=== PATIENT | female | born 1990 | race Caucasian/White ===

== ENCOUNTER 2021-01-04 17:11 | Emergency (ER) | payer MEDICAID, SELFPAY ==
[2021-01-04 17:59] VITALS: BP 138/82; PULSE 96; RESP 15; TEMP 36.3; O2SAT 98; BMI 67.6
--- NOTE | 2021-01-04 18:20 | XR_ITS ---
WS: [id number] XR chest 1V portable [id number] REASON FOR EXAM: sob FINDINGS: The chest is unchanged compared to 10/08/2013. The heart and mediastinum are within normal limits. No active pulmonary parenchymal or pleural disease is noted. No significant abnormality of the bony thorax. XR/XR chest 1V portable [id number] IMPRESSION: No significant chest abnormality.
[2021-01-04 18:36] LABS: Basophils % 0.2 %; Eosinophils # 0.1 10^3/uL (0.0-0.8); Eosinophils % 0.5 %; Hematocrit 46.6 % (37.0-47.0); Hemoglobin 14.9 g/dL (11.5-15.3); Lymphocytes % 9.5 %; Mean Corpuscular Volume 84.6 fL (81-99); Mean Platelet Volume 10.4 fL (7.4-10.4); Monocytes # 0.5 10^3/uL (0.2-0.9); Monocytes % 5.3 %; Neutrophils # 8.42 10^3/uL (1.8-7.7); Neutrophils % 84.2 %; Nucleated Red Blood Cells % 0 %; Platelet Count 277 10^3/cmm (130-400); Red Blood Count 5.51 10^6/uL (4.1-5.3); Red Cell Distribution Width 13.8 % (12.1-15.1)
--- NOTE | 2021-01-04 19:03 | PC.NURSE ---
REPORT RECEIVED FROM MATHEUS CHURCH AND CARE TRANSFERRED TO MATHEUS HURLEY
[2021-01-04 19:13] LABS: Procalcitonin 0.05 ng/mL (0-0.5)
[2021-01-04 19:24] LABS: Blood Urea Nitrogen 12 mg/dL (6-20); Calcium 9.4 mg/dL (8.5-10.5); Carbon Dioxide 24 mmol/L (22-29); Chloride 102 mmol/L (98-107); Glomerular Filtration Rate 115.9 mL/min (90-130); Glucose 92 mg/dL (65-115); Osmolality Calculated 283 mOsm/kg (285-295); Sodium 137 mmol/L (136-145)
[2021-01-04 19:25] LABS: Alanine Aminotransferase 22 U/L (0-33); Albumin Level 4.2 g/dL (3.5-5.2); Alkaline Phosphatase 108 IU/L (35-105); Aspartate Amino Transferase 13 U/L (0-32); C Reactive Protein 14.5 mg/L (0.0-4.9); Globulin 3.7 g/dL (1.3-4.6); Lipase 20 U/L (13-60); Total Bilirubin 0.5 mg/dL (0.15-1.2); Total Protein 7.9 g/dL (6.6-8.7)
[2021-01-04 19:38] VITALS: RESP 16; O2SAT 92
[2021-01-04] MEDS: morphine 4 mg/mL SDV 1 mL IVP (19:38)
[2021-01-04] MEDS: ondansetron 2 mg/ML SDV 2 mL 4 MG IVP (19:38)
[2021-01-04 19:41] VITALS: PULSE 101; RESP 17; O2SAT 92
[2021-01-04 20:17] LABS: Add Urine Microscopic? YES; Bilirubin Urine Neg (Negative); Blood Urine 2+ (Negative); Glucose Urine UA Norm (Normal); Ketones Urine Negative (Negative); Leukocyte Esterase Urine Negative (Negative); Nitrate Urine Negative (Negative); Protein Urine Neg (Negative); Urine Appearance Cloudy (CLEAR); Urine Color Yellow (Yellow); Urobilinogen Urine Norm (Negative); pH Urine 5 (5-7)
[2021-01-04 20:18] LABS: Add Urine Culture? No; Bacteria Urine 1+ /hpf; Squamous Epithelial Cell Urine 0-4 /hpf (0-5); WBC Urine 0-4 /hpf (0-5)
--- NOTE | 2021-01-04 20:22 | CTR_ITS ---
PROCEDURE INFORMATION: Exam: CT Abdomen And Pelvis Without Contrast Exam date and time: 01/04/2021 8:30 PM Age: 30 years old Clinical indication: Abdominal pain; Prior surgery; Surgery type: Gb; Additional info: Right flank pain TECHNIQUE: Imaging protocol: Computed tomography of the abdomen and pelvis without contrast. Total images: 373 Radiation optimization: All CT scans at this facility use at least one of these dose optimization techniques: automated exposure control; mA and/or kV adjustment per patient size (includes targeted exams where dose is matched to clinical indication); or iterative reconstruction. COMPARISON: US gall bladder [id number] 01/03/2017 7:47 AM RADIATION DOSE METRICS: Total DLP (mGy-cm): 1935.48 FINDINGS: Lungs: Limited assessment of the lung bases fails to reveal evidence for active cardiopulmonary process. Liver: Hepatomegaly. No visible hepatic mass or cystic structure. Gallbladder and bile ducts: Status post cholecystectomy. Pancreas: Pancreas unremarkable. No visible pancreatic ductal ectasia. Spleen: Splenomegaly. Adrenal glands: Adrenal glands unremarkable. Kidneys and ureters: No visible hydronephrosis or hydroureter. No visible nephrolithiasis or visible ureterolithiasis. Stomach and bowel: Assessment of the hollow viscus fails to reveal evidence of active or acute pathology. Nonobstructed bowel pattern. No visible acute diverticulitis. No visible adynamic or reactive ileus. Appendix: The appendix is visualized and appears noninflamed. Intraperitoneal space: No visible evidence of mesenteric lymphadenitis or active mesenteritis/panniculitis. No visible pneumoperitoneum or intraperitoneal ascites. Vasculature: The abdominal aorta is nonaneurysmal. Lymph nodes: No current visible evidence of active mesenteric or retroperitoneal lymphadenopathy. Urinary bladder: Urinary bladder unremarkable. Reproductive: Unremarkable as visualized. Bones/joints: No visible active or acute osseous pathology. Degenerative disc disease L5/S1. Soft tissues: Marked morbid obesity. Other findings: Increased quantum mottle artifact which degrades image quality in detail assessment. CT/CT kidney stone [id number] IMPRESSION: 1. No visible hydronephrosis, hydroureter, ureterolithiasis, nephrolithiasis, or nephrocalcinosis. 2. Currently no visible evidence of acute abdominal or pelvic pathologic process. Radiation Dose CTDIVOL = (mGy): DLP = 1935.48 (mGy-cm)
[2021-01-04] MEDS: metoclopramide 5 mg/mL SDV 2 mL 10 MG IVP (20:27)
--- NOTE | 2021-01-04 20:27 | W.ED.GENADLT ---
HPI - General Adult General: Chief complaint: General Medical Stated complaint: multiple chronic complaints Time Seen by Provider: 01/04/21 18:06 Source: patient Mode of arrival: ambulatory Limitations: no limitations History of Present Illness: HPI narrative: Patient is a 30-year-old female who presents to the emergency department with abdominal pain that has been on and off for several years. She states this current episode has been lasting for about 3 months. She also has some shortness of breath which she attributes to being obese, some chest tightness. She has had her gallbladder removed, symptoms were worse when she ate and she vomited after eating chicken strips. She denies any fever or diarrhea. She denies constipation. She feels her abdomen is bloated. She is here to be evaluated. Onset (ago): month(s) (3) Location: abdomen Radiation: non-radiation Severity: moderate Quality: aching Pain Consistency: constant Relieving factors: none Exacerbating factors: none Associated symptoms: Reports nausea and short of breath; Deny chest pain, confusion, cough, diaphoresis, decreased appetite, dyspnea, fevers/chills, headache(s), malaise, rash, palpitations, seizures, syncope, vomiting or weakness Treatments prior to arrival: none Review of Systems General: Reports: 10 or more systems reviewed and unremarkable except in HPI and below Const: Denies: malaise or diaphoresis Eyes: Denies: change in vision or blurry vision ENMT: Denies: throat pain, enlarged tonsils, odynophagia, hoarseness, mouth pain or swelling of lips/tongue Card: Denies: chest pain, palpitations or syncope Resp: Denies: dyspnea GI: Reports: nausea; Denies: vomiting : Denies: flank pain, difficulty voiding, dysuria, urinary frequency, urinary urgency or urinary hesitancy Musc: Denies: neck pain, back pain or extremity swelling Skin/Breast: Denies: rash Neuro: Denies: headache(s) or confusion Endo: Denies: polyuria, polydipsia or tired all the time [facility] Female Reproductive History: Date of last menstrual period: 12/14/20 Physical Exam Const: COMMON NORMALS: no acute distress, patient oriented x3, no limitations, alert and well nourished NUTRITIONAL APPEARANCE: obese morbidly obese HENMT: COMMON NORMALS: normocephalic, atraumatic and moist oral mucous membranes HEAD & SCALP: normocephalic and atraumatic Neck/C-Spine: COMMON NORMALS: no meningeal signs and no JVD Resp: COMMON NORMALS: normal respiratory effort, No retractions, No use of accessory muscles, clear to auscultation bilaterally and percussion normal AUSCULTATION: clear to auscultation bilaterally PERCUSSION: percussion normal Cardio: COMMON NORMALS: no JVD, regular rate, regular rhythm, S1 normal heart sound present, S2 normal heart sound present, No gallops present (Cardio), No clicks present (Cardio), No murmurs present (Cardio), No rub (Cardio) and Peripheral pulses 2+ throughout RATE: regular rate RHYTHM: regular rhythm HEART SOUNDS: S1 normal heart sound present and S2 normal heart sound present PERIPHERAL PULSES: Peripheral pulses 2+ throughout GI: COMMON NORMALS: Normal to inspection, nondistended, normoactive bowel sounds present, Soft to palpation, No hepatosplenomegaly present, no masses and no bruits PALPATION: Yes Soft to palpation, Yes Tenderness to palpation present (GI) (epigastric) and Yes No hepatosplenomegaly present : COMMON NORMALS: Yes no CVA tenderness BLADDER/KIDNEY EXAM: Yes no CVA tenderness Back/Pelvis: COMMON NORMALS: no CVA tenderness Extremity: COMMON NORMALS: normal to inspection, full ROM, capillary refill normal, no calf tenderness and no pedal edema Neuro: COMMON NORMALS: patient oriented x3 SENSORIUM/ORIENTATION: Yes alert MENINGEAL SIGNS: Yes no meningeal signs Course Reevaluation(s): Reevaluation #1: Discussed her lab and imaging findings with her. She has hematuria, however the abdominal CT scan did not show any urolithiasis. She obtained significant improvement following the metoclopramide injection. I will therefore discharge her home with a prescription for metoclopramide and she is advised to follow-up with her primary care provider. She voiced understanding and is in agreement with the plan Time: 21:47 Vital Signs: Vital signs: Vital Signs Temperature 97.3 F L 01/04/21 17:59 Pulse Rate 116 H 01/04/21 21:52 Respiratory Rate 16 01/04/21 21:52 Blood Pressure 123/92 01/04/21 21:52 Pulse Oximetry 97 01/04/21 21:52 MDM - General Adult MDM Narrative: Medical decision making narrative: 30-year-old female who presents to the emergency department with abdominal pain that has been ongoing for about 3 months. Evaluation in the emergency department was unremarkable. Pain was resolved following metoclopramide as she is discharged home on the same to use as needed. She is also to follow-up with her primary care provider. Medical Records: Attestation: I reviewed the patient's medical records. Lab Data: Attestation: I reviewed the patient's lab results. Labs: Lab Results 01/04/21 01/04/21 01/04/21 Range/Units 18:24 18:24 19:28 WBC 10.0 (4.0-10.0) 10^3/ uL RBC 5.51 H (4.1-5.3) 10^6/u L Hgb 14.9 (11.5-15.3) g/dL Hct 46.6 (37.0-47.0) % MCV 84.6 (81-99) fL MCH 27.0 L (28.0-34.0) pg MCHC 32.0 (30.0-36.0) g/dL RDW 13.8 (12.1-15.1) % Plt Count 277 (130-400) 10^3/c mm MPV 10.4 (7.4-10.4) fL Neut % (Auto) 84.2 % Lymph % (Auto) 9.5 % [place] % (Auto) 5.3 % Eos % (Auto) 0.5 % Baso % (Auto) 0.2 % Neut # (Auto) 8.42 H (1.8-7.7) 10^3/u L Lymph # (Auto) 1.0 (0.8-4.8) 10^3/u L [place] # (Auto) 0.5 (0.2-0.9) 10^3/u L Eos # (Auto) 0.1 (0.0-0.8) 10^3/u L Baso # (Auto) 0.0 (0.0-0.1) 10^3/u L Nucleated RBC % (a uto) 0 % Nucleated RBCs # 0.0 /100WBC Sodium 137 (136-145) mmol/L Potassium 4.0 (3.5-5.1) mmol/L Chloride 102 (98-107) mmol/L Carbon Dioxide 24 (22-29) mmol/L Anion Gap 15.0 (5-19) BUN 12 (6-20) mg/dL Creatinine 0.6 (0.5-0.9) mg/dL GFR Calculation 115.9 (90-130) mL/min Glucose 92 (65-115) mg/dL Calculated Osmolal ity 283 L (285-295) mOsm/k g Calcium 9.4 (8.5-10.5) mg/dL Total Bilirubin 0.5 (0.15-1.2) mg/dL AST 13 (0-32) U/L ALT 22 (0-33) U/L Alkaline Phosphata se 108 H (35-105) IU/L C-Reactive Protein 14.5 H (0.0-4.9) mg/L Total Protein 7.9 (6.6-8.7) g/dL Albumin 4.2 (3.5-5.2) g/dL Globulin 3.7 (1.3-4.6) g/dL Lipase 20 (13-60) U/L Procalcitonin 0.05 (0-0.5) ng/mL Urine Color Yellow (Yellow) Urine Appearance Cloudy (CLEAR) Urine pH 5 (5-7) Ur Specific Gravit y 1.020 (1.005-1.030) Urine Protein Neg (Negative) Urine Glucose (UA) Norm (Normal) Urine Ketones Negative (Negative) Urine Blood 2+ H (Negative) Urine Nitrate Negative (Negative) Urine Bilirubin Neg (Negative) Urine Urobilinogen Norm (Negative) mg/dL Ur Leukocyte Julia ase Negative (Negative) Urine RBC 10-15 H (0-2) /hpf Urine WBC 0-4 H (0-5) /hpf Ur Squamous Epith Cells 0-4 H (0-5) /hpf Amorphous Sediment Not Reportable Urine Bacteria 1+ H (NONE) /hpf Imaging Data^: CT Abd/Pel: Attestation: I personally reviewed and interpreted this imaging study as follows: Radiologist's impression: [address] [place] [address] CT Scan Report Signed Patient: Jhony Quiroga Ginger #: [id number] : 1990Acct#:[id number] Age/Sex: 30 / FADM Date: 01/04/21 Loc: ERRoom/Bed: Attending Dr: Ordering Provider/Ordering MD: Candy Crandall MD, BILLIE Date of Service: 01/04/21 Procedure(s): CT kidney stone 26113 Accession Number(s): [id number] Report Number: [id number] PROCEDURE INFORMATION: Exam: CT Abdomen And Pelvis Without Contrast Exam date and time: 01/04/2021 8:30 PM Age: 30 years old Clinical indication: Abdominal pain; Prior surgery; Surgery type: Gb; Additional info: Right flank pain TECHNIQUE: Imaging protocol: Computed tomography of the abdomen and pelvis without contrast. Total images: 373 Radiation optimization: All CT scans at this facility use at least one of these dose optimization techniques: automated exposure control; mA and/or kV adjustment per patient size (includes targeted exams where dose is matched to clinical indication); or iterative reconstruction. COMPARISON: gall bladder [id number] 01/03/2017 7:47 AM RADIATION DOSE METRICS: Total DLP (mGy-cm): 1935.48 FINDINGS: Lungs: Limited assessment of the lung bases fails to reveal evidence for active cardiopulmonary process. Liver: Hepatomegaly. No visible hepatic mass or cystic structure. Gallbladder and bile ducts: Status post cholecystectomy. Pancreas: Pancreas unremarkable. No visible pancreatic ductal ectasia. Spleen: Splenomegaly. Adrenal glands: Adrenal glands unremarkable. Kidneys and ureters: No visible hydronephrosis or hydroureter. No visible nephrolithiasis or visible ureterolithiasis. Stomach and bowel: Assessment of the hollow viscus fails to reveal evidence of active or acute pathology. Nonobstructed bowel pattern. No visible acute diverticulitis. No visible adynamic or reactive ileus. Appendix: The appendix is visualized and appears noninflamed. Intraperitoneal space: No visible evidence of mesenteric lymphadenitis or active mesenteritis/panniculitis. No visible pneumoperitoneum or intraperitoneal ascites. Vasculature: The abdominal aorta is nonaneurysmal. Lymph nodes: No current visible evidence of active mesenteric or retroperitoneal lymphadenopathy. Urinary bladder: Urinary bladder unremarkable. Reproductive: Unremarkable as visualized. Bones/joints: No visible active or acute osseous pathology. Degenerative disc disease L5/S1. Soft tissues: Marked morbid obesity. Other findings: Increased quantum mottle artifact which degrades image quality in detail assessment. CT/CT kidney stone [id number] IMPRESSION: 1. No visible hydronephrosis, hydroureter, ureterolithiasis, nephrolithiasis, or nephrocalcinosis. 2. Currently no visible evidence of acute abdominal or pelvic pathologic process. Radiation Dose CTDIVOL = (mGy): DLP = 1935.48 (mGy-cm) Dictated By:Nikolay Krishnan Signed By:Nikolay KrishnanSiallyson Date/Time:01/04/212151 DD/ 09 Discharge Plan Discharge Patient Disposition: Home Clinical Impression: Abdominal pain Qualifiers: Abdominal location: epigastric Qualified Code(s): R10.13 - Epigastric pain Condition: Stable Prescriptions: New Reglan 10 mg tablet 10 mg PO Q6H PRN (Reason: nausea and vomiting) Qty: 21 RF: 0 Continued diphenhydramine-acetaminophen 38-500 mg Tablet 1 - 2 tab PO BEDTIME PRN (Reason: Sleep) RF: 0 Discharge Orders: Discharge ED (Routine); Ordered 01/04/21 Ordered By: Candy Crandall Referrals: Fabian Coyne MD [Primary Care Provider] - 1-3 days Discharge Diet: Usual diet Discharge Activity: Increase activity as tolerated Patient Instructions: Abdominal Pain (ED) Activity Restrictions/Additional Instructions: Return for any new or worsening symptoms. Follow-up with your primary care provider within 3 days. Take the medication as needed. Coding Level of Care Code ED Floral Department Specialist for Aamir Hudsno
--- NOTE | 2021-01-04 20:39 | PC.NURSE ---
patient ambulated to CT with process maintenance technician
[2021-01-04 21:52] VITALS: BP 123/92; PULSE 116; RESP 16; O2SAT 97
== END 2021-01-04 21:55 | disposition home or self-care (01) ==
PROVIDERS: Emergency Provider Family Medicine; PCP Family Medicine
DX: R10.13 Epigastric pain (principal)
CPT/HCPCS: 71045; 74176; 80053; 81001; 83690; 84145; 85025; 86140; 96374; 96375; 99283; J2270; J2405; J2765

== ENCOUNTER 2021-06-03 15:10 | Emergency (ER) | payer MEDICAID, SELFPAY ==
[2021-06-03 15:29] VITALS: BP 142/104; PULSE 95; RESP 18; TEMP 36.6; O2SAT 97
--- NOTE | 2021-06-03 15:41 | XRR_ITS ---
PROCEDURE INFORMATION: Exam: XR Right Knee Exam date and time: 06/03/2021 3:41 PM Age: 30 years old Clinical indication: Pain; Knee; Right; Additional info: Pain, injury TECHNIQUE: Imaging protocol: XR Right knee. Views: 3 views. COMPARISON: No relevant prior studies available. FINDINGS: Bones/joints: Normal. Soft tissues: Normal. XR/XR knee RT 3V* [id number] IMPRESSION: No acute findings.
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
== END 2021-06-03 16:41 | disposition home or self-care (01) ==
PROVIDERS: Emergency Provider Nurse Practitioner Family; PCP Family Medicine
DX: M25.561 Pain in right knee (principal)
CPT/HCPCS: 73562; 99282

== ENCOUNTER → 2021-08-31 14:59 | Outpatient (BNVA) | payer MEDICAID, SELFPAY | PROVIDERS: PCP Family Medicine; Visit Provider Nurse Practitioner Family | DX: Z20.822 Contact with and (suspected) exposure to COVID-19 (principal) | CPT/HCPCS: 87635 ==

== ENCOUNTER 2021-09-17 15:30 | Emergency (ER) | payer MEDICAID, SELFPAY ==
[2021-09-17 16:10] VITALS: BP 138/98; PULSE 76; RESP 24; TEMP 36.4; O2SAT 98; BMI 73.1
--- NOTE | 2021-09-17 17:06 | XRR_ITS ---
PROCEDURE INFORMATION: Exam: XR Chest Exam date and time: 09/17/2021 5:06 PM Age: 31 years old Clinical indication: Cough; Additional info: Cough, history of pneumonia TECHNIQUE: Imaging protocol: XR of the chest. Views: 1 view. COMPARISON: CR XR chest 1V portable [id number] 01/04/2021 6:28 PM FINDINGS: Lungs: Unremarkable. No consolidation. Pleural spaces: Unremarkable. No pleural effusion. No pneumothorax. Heart/Mediastinum: Unremarkable. No cardiomegaly. Bones/joints: Unremarkable. XR/XR chest 1V portable [id number] IMPRESSION: No acute findings. Radiation Dose CTDIVOL = (mGy): DLP = (mGy-cm)
--- NOTE | 2021-09-17 17:06 | W.ED.URI ---
HPI - URI/Sore Throat General: Chief Complaint: Upper Respiratory Infection Stated Complaint: TROUBLE BREATHING Time Seen by Provider: 09/17/21 16:58 History of Present Illness: HPI Narrative: 31-year-old female comes in today for complaints of cough and congestion for the last 3 weeks. Patient was treated 1 week ago with steroids and antibiotic. Patient is a smoker but has not smoked for the last 3 weeks. Patient appears mildly unwell but not toxic. Patient appears no acute distress. MD elicited complaint: cough Review of Systems General: Reports: 10 or more systems reviewed and unremarkable except in HPI and below Resp: Reports: dyspnea and non-productive cough PFS ED PFSH: Social History Smoking and tobacco status: current every day smoker Female Reproductive History: Date of last menstrual period: 08/17/21 Physical Exam Const: COMMON NORMALS: no acute distress and patient oriented x3 GENERAL APPEARANCE: cooperative HENMT: COMMON NORMALS: normocephalic and TM's normal bilaterally HEAD & SCALP: normal to inspection and normocephalic NOSE: Nasal discharge present TYMPANIC MEMBRANE: TM's normal bilaterally MOUTH: Normal oral and palatal mucosa present THROAT: posterior oropharynx normal Eye: GENERAL EYE: appearance normal, both eyes and all related structures Neck/C-Spine: COMMON NORMALS: full ROM Lymph: LYMPHATIC: no lymphadenopathy noted Chest: COMMONS NORMALS: normal inspection of the chest Resp: COMMON NORMALS: normal respiratory effort EFFORT & INSPECTION: Yes able to speak in complete sentences AUSCULTATION: wheezes and diminished lung sounds Cardio: COMMON NORMALS: regular rate and regular rhythm RATE: regular rate RHYTHM: regular rhythm GI: COMMON NORMALS: non-tender : COMMON NORMALS: Yes no CVA tenderness BLADDER/KIDNEY EXAM: Yes no CVA tenderness Back/Pelvis: COMMON NORMALS: no CVA tenderness and thoracic and lumbar spine normal to inspection Extremity: COMMON NORMALS: normal to inspection Neuro: COMMON NORMALS: patient oriented x3 and moves all extremities Psych: COMMON NORMALS: mental status grossly normal and cooperative Skin: COMMON NORMALS: no rashes or lesions noted GENERAL SKIN EXAM: no rashes or lesions noted Course Vital Signs: Vital signs: Vital Signs Temperature 97.6 F 09/17/21 16:10 Pulse Rate 76 09/17/21 16:10 Respiratory Rate 24 H 09/17/21 16:10 Blood Pressure 138/98 09/17/21 16:10 Pulse Oximetry 98 09/17/21 16:10 MDM - URI/Sore Throat MDM Narrative: Medical decision making narrative: Patient comes in today with continued complaints of difficulty breathing at times with cough and congestion. On exam lungs were decreased throughout with occasional wheeze. Skin was warm and dry. Vital signs were unremarkable. Differential diagnosis includes but not limited to pneumonia, acute bronchitis, asthma, COPD. Chest x-ray had no obvious signs of infiltrate or consolidations. Suspect patient probably has a COPD. We will start patient on a course of doxycycline with prednisone and also add to patient's regimen Symbicort inhaler. Encourage patient to drink plenty of fluids and follow-up with primary care in 3 to 5 days for recheck. Patient reported understanding and agreed to plan. Discharge Plan Discharge Patient Disposition: Home Clinical Impression: Bronchitis Condition: Stable Prescriptions: New doxycycline monohydrate 100 mg capsule 100 mg PO BID 10 Days Qty: 20 RF: 0 prednisone 20 mg tablet 20 mg PO BID 7 Days Qty: 14 RF: 0 Symbicort 80-4.5 mcg/actuation HFA aerosol inhaler 2 inh inhalation BID Qty: 10.2 RF: 0 Continued Ventolin HFA 90 mcg/actuation HFA aerosol inhaler 2 puff inhalation Q6H PRN (Reason: shortness of breath or wheezing) Qty: 8.5 RF: 0 No Action azithromycin 250 mg tablet See Rx Instructions PO .COMPLEX Qty: 6 RF: 0 methylprednisolone [Medrol (Roderick)] 4 mg tablets,dose pack See Rx Instructions PO PER PKG DIR Qty: 21 RF: 0 diphenhydramine-acetaminophen 38-500 mg Tablet 1 - 2 tab PO BEDTIME PRN (Reason: Sleep) RF: 0 Reglan 10 mg tablet 10 mg PO Q6H PRN (Reason: nausea and vomiting) Qty: 21 RF: 0 Discharge Orders: Discharge ED (Routine); Ordered 09/17/21 Ordered By: Rick Darnell Referrals: Fabian Coyne MD [Primary Care Provider] - Patient Instructions: Chronic Bronchitis (ED), Opioid Safety Activity Restrictions/Additional Instructions: Continue cessation of smoking. Use albuterol as needed for shortness of breath. Use doxycycline 100 mg twice a day for the next 10 days for antibiotic. Take prednisone 20 mg twice a day for the next 7 days. Drink plenty of water with medication. Follow-up with primary care in 3 to 5 days for recheck. You may need to have further evaluation and possibly further treatment with a steroid inhaler or other medication to assist with your cough and congestion. Coding Level of Care Code ED Fleet Coordinator for Aamir Hudson Exam Comprehensive
[2021-09-17] MEDS: dexamethasone 10 mg/mL INJ IM (18:58)
[2021-09-17 19:00] VITALS: PULSE 83; RESP 20; O2SAT 94
[2021-09-17] MEDS: doxycycline 100 mg Tablet PO (19:03)
== END 2021-09-17 19:05 | disposition home or self-care (01) ==
PROVIDERS: Emergency Provider Nurse Practitioner Family; PCP Family Medicine
DX: J40 Bronchitis, not specified as acute or chronic (principal); F17.210 Nicotine dependence, cigarettes, uncomplicated
CPT/HCPCS: 71045; 96372; 99283; J1100

== ENCOUNTER 2021-12-18 08:48 | Outpatient (CLI) | payer MEDICAID, SELFPAY ==
--- NOTE | 2021-12-18 08:59 | CT_ITS ---
WS: [id number] CT ABDOMEN AND PELVIS WITH CONTRAST HISTORY: ELEVATED C REACTIVE PROTEIN/ABD PAIN/EASY BRUISING TECHNIQUE: Imaging performed of the abdomen and pelvis with IV contrast. Single phase imaging of the abdomen. Coronal and sagittal reformats are submitted. All CT scans at [facility] use at [address] one of these dose optimization techniques: automated exposure control; mA and/or kV adjustment per patient size (includes targeted exams where dose is matched to clinical indication); or iterative re construction. IV CONTRAST: Omnipaque 350; 95 mL IV. Oral contrast: Yes. DLP: 1246.01 mGy.cm COMPARISON: 01/04/2021 Lower thorax: Lung bases are clear. Heart is normal size. Small hiatal hernia. Liver/biliary system: Fatty sparing along the falciform ligament. No mass or bile duct dilatation. Gallbladder: Status post cholecystectomy. Pancreas: Normal size pancreas and pancreatic duct. No adjacent inflammation. Spleen: Normal size spleen. No mass or infarct. Adrenal glands: Normal. Right kidney: Variable density throughout the kidney. Favor this is probably due to body habitus and beam hardening artifact. Left kidney: Variable density throughout the kidney is probably due to patient's body habitus and nicolasa m hardening artifact. Aorta: Normal. Lymphadenopathy: None. Free fluid: None. GI tract: Nondistended stomach. No small bowel obstruction. The appendix is poorly visualized due to body habitus. No inflammatory changes are identified in the abdomen or pelvis. No obstruction. Abdominal wall: Small area of increased density in the subcutaneous soft tissues of the RIGHT abdomin al wall measures 14 x 18 mm. This corresponds to the area of pain. Pelvis: No free fluid or adenopathy within the pelvis. Significant artifact through the pelvis. Uteru s and adnexa are poorly visualized. Bones: Suboptimal evaluation of the osseous structures of the pelvis. CT/CT abdomen pelvis w con* [id number] IMPRESSION: 1. No acute intra-abdominal or pelvic abnormalities are identified. 2. Quality of this examination is suboptimal secondary to body habitus resulti ng in beam hardening artifact. 3. Prior cholecystectomy. 4. Focal area of fat necrosis in the subcutaneous soft tissues of the RIGHT ab dominal wall.
[2021-12-18] MEDS: iohexol 350 mg/mL 100 mL Btl IV (11:19)
[2021-12-18] MEDS: iohexol 300 mg/mL 50 mL Btl PO (11:20)
== END 2021-12-18 08:49 | disposition home or self-care (01) ==
PROVIDERS: PCP Family Medicine; Visit Provider Family Medicine
DX: R79.82 Elevated C-reactive protein (CRP) (principal); R10.84 Generalized abdominal pain; R23.8 Other skin changes; R63.4 Abnormal weight loss; Z90.49 Acquired absence of other specified parts of digestive tract; K65.4 Sclerosing mesenteritis
CPT/HCPCS: 74177

== ENCOUNTER → 2021-12-27 13:47 | Outpatient (BNVA) | payer MEDICAID, SELFPAY | PROVIDERS: PCP Family Medicine; Visit Provider Nurse Practitioner Psychiatric/Mental Health | DX: F33.1 Major depressive disorder, recurrent, moderate (principal); F43.12 Post-traumatic stress disorder, chronic; F17.210 Nicotine dependence, cigarettes, uncomplicated | CPT/HCPCS: 90792 ==

== ENCOUNTER → 2022-01-18 12:33 | Outpatient (BNVA) | payer MEDICAID, SELFPAY | PROVIDERS: PCP Family Medicine; Visit Provider Nurse Practitioner Psychiatric/Mental Health | DX: F33.1 Major depressive disorder, recurrent, moderate (principal); F43.12 Post-traumatic stress disorder, chronic; F17.210 Nicotine dependence, cigarettes, uncomplicated; F41.1 Generalized anxiety disorder | CPT/HCPCS: 99214 ==

== ENCOUNTER → 2022-02-08 13:10 | Outpatient (BNVA) | payer MEDICAID, SELFPAY | PROVIDERS: PCP Family Medicine; Visit Provider Nurse Practitioner Psychiatric/Mental Health | DX: F33.1 Major depressive disorder, recurrent, moderate (principal); F41.1 Generalized anxiety disorder; F43.12 Post-traumatic stress disorder, chronic; F17.210 Nicotine dependence, cigarettes, uncomplicated | CPT/HCPCS: 99214 ==

== ENCOUNTER → 2022-04-18 14:42 | Outpatient (BNVA) | payer MEDICAID, SELFPAY | PROVIDERS: PCP Family Medicine; Visit Provider Nurse Practitioner Psychiatric/Mental Health | DX: F33.1 Major depressive disorder, recurrent, moderate (principal); F41.1 Generalized anxiety disorder; F43.12 Post-traumatic stress disorder, chronic; F17.210 Nicotine dependence, cigarettes, uncomplicated | CPT/HCPCS: 99214 ==

== ENCOUNTER → 2023-01-15 11:00 | Outpatient (BNVA) | payer MEDICAID, SELFPAY | PROVIDERS: PCP Family Medicine; Visit Provider Obstetrics & Gynecology | DX: Z01.419 Encounter for gynecological examination (general) (routine) without abnormal findings (principal) | CPT/HCPCS: 87624 ==

== ENCOUNTER 2023-03-15 20:04 | Emergency (ER) | payer MEDICAID, SELFPAY ==
[2023-03-15 20:24] VITALS: BP 125/82; PULSE 96; RESP 18; TEMP 36.7; O2SAT 96; BMI 53.2
--- NOTE | 2023-03-15 21:27 | ED_ITS ---
HPI - Skin/Abscess/Foreign Bdy General: Chief complaint: Skin/Abscess/Foreign Body Stated complaint: Spots on left hand Time Seen by Provider: 03/15/23 20:59 History of Present Illness: Patient is in for skin lesion. 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 Patient states that she has random intermittent reddish-purple spots that come up on her skin. She states that this has been ongoing for couple of years. She states that typically they are on her lower abdomen. She states that the skin itches and then the spot comes up and the itching resolves. She reports that the spot last 2 to 3 days and does not hurt or have any other symptoms. 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 She reports that she also has 2 tube like masses that appear under bilateral rib cage on her abdomen intermittently. She reports those are not there right now but when they come they hurt extremely bad. The only symptom she has currently is the reddish-purple spot on the side of her left thumb. She denies any systemic symptoms. She denies possibility of . She reports that the lesion on her thumb popped up approximately an hour before her arrival in the ER. She states that it is never there when she sees the primary care so she went to be seen while it was happening. Associated symptoms: Deny chills, fever(s), nausea or vomiting Review of Systems Const: Denies: fever(s), chills or body aches Eyes: Denies: change in vision or blurry vision ENMT: Denies: throat pain Card: Denies: chest pain, palpitations, irregular heart rhythm, light headedness or syncope Resp: Denies: dyspnea, productive cough or non-productive cough GI: Denies: abdominal pain, nausea or vomiting : Denies: flank pain, difficulty voiding, dysuria, urinary frequency, urinary urgency or urinary hesitancy Musc: Denies: neck pain or back pain Skin/Breast: Reports: other (Discolored lesion on left thumb) Neuro: Denies: headache(s), numbness in extremities or weakness in extremities PFS ED PFSH: Medical History Chronic post-traumatic stress disorder (PTSD) Generalized anxiety disorder Major depressive disorder, recurrent episode, moderate with anxious distress Nicotine dependence, cigarettes, uncomplicated Psychiatric care Surgical History History of laparoscopic cholecystectomy Social History Substance/Drug Use: current Physical Exam Const: COMMON NORMALS: no acute distress, patient oriented x3 and alert GENERAL APPEARANCE: cooperative ORIENTATION/CONSCIOUSNESS: Yes awake, Yes oriented to person, Yes oriented to place and Yes oriented to time Resp: COMMON NORMALS: normal respiratory effort, No retractions, No use of accessory muscles and clear to auscultation bilaterally EFFORT & INSPECTION: Yes symmetric chest movement AUSCULTATION: clear to auscultation bilaterally Cardio: COMMON NORMALS: regular rate, regular rhythm, S1 normal heart sound present and S2 normal heart sound present RATE: regular rate RHYTHM: regular rhythm HEART SOUNDS: S1 normal heart sound present and S2 normal heart sound present GI: COMMON NORMALS: Normal to inspection, nondistended, normoactive bowel sounds present, Soft to palpation, non-tender, No hepatosplenomegaly present, no masses and no bruits INSPECTION: Yes normal to inspection PALPATION: Yes Soft to palpation and Yes No hepatosplenomegaly present Neuro: COMMON NORMALS: patient oriented x3 SENSORIUM/ORIENTATION: Yes alert, Yes oriented to person, Yes oriented to place and Yes oriented to time Skin: NARRATIVE SKIN EXAM: There are 2 small/pea-sized areas of reddish purpleish discoloration on the side of the patient's left thumb these are not raised, nonpainful to palpation. They look like bruises. She does have yellowish bruised area on her right side abdomen that is approximately nickel sized. She says it does not hurt so it must not be a bruise. Course Vital Signs: Vital signs: Vital Signs Temperature 98.1 F 03/15/23 20:24 Pulse Rate 96 03/15/23 20:24 Respiratory Rate 18 03/15/23 20:24 Blood Pressure 125/82 03/15/23 20:24 Pulse Oximetry 96 03/15/23 20:24 MDM - Skin/Abscess/Foreign Bdy Medicial Decision Making The patient is in for skin discoloration which she reports is intermittent over the past couple of years. She has no significant symptoms. I had a lengthy discussion with her and advised that I do not see anything concerning for needing immediate intervention at this time in the ER setting. I recommend that she have a follow-up with her primary care provider I will refer her to dermatology so that she can discuss these intermittent skin lesions with the clip baker. I advised her to follow-up back in ER for new or worsening symptoms. Patient is very agreeable with plan of care and discharged to home. Patient discharged in stable condition Discharge Plan Discharge Patient Disposition: Home Clinical Impression: Discoloration of skin Condition: Stable Prescriptions: No Action No Known Home Medications Discharge Orders: Discharge ED (Routine); Ordered 03/15/23 Ordered By: Diamante Laureano Referrals: Fabian Coyne MD [Primary Care Provider] - Discharge Diet: Usual diet Discharge Activity: Resume usual activity Activity Restrictions/Additional Instructions: I initiated a referral to dermatology. Follow-up with your primary care elizabeth medrano for ongoing evaluation. Return to the ER as needed for new or worsening symptoms. Coding Level of Care Code ED Small Battery Plate Assembler for Aamir Hudson
--- NOTE | 2023-03-18 12:27 | DCPLANNER ---
manager environmental had message to refer patient to dermatology. manager environmental is unable to refer patient to dermatology, that referral has to come from patients primary care physician. manager environmental attempted to call patient at phone number [phone] - unable to speak with patient and unable to leave a voicemail for patient at this time.
== END 2023-03-15 21:50 | disposition home or self-care (01) ==
PROVIDERS: Emergency Provider Nurse Practitioner Family; PCP Family Medicine
DX: L98.9 Disorder of the skin and subcutaneous tissue, unspecified (principal)
CPT/HCPCS: 99281

== ENCOUNTER → 2023-03-21 10:04 | Outpatient (BNVA) | payer MEDICAID, OTHER, SELFPAY | PROVIDERS: PCP Family Medicine; Visit Provider Obstetrics & Gynecology | DX: N93.9 Abnormal uterine and vaginal bleeding, unspecified (principal); R93.89 Abnormal findings on diagnostic imaging of other specified body structures | CPT/HCPCS: 76830 ==

== ENCOUNTER 2025-08-30 16:18 | Inpatient (IN) | payer MEDICAID, SELFPAY ==
--- NOTE | 2025-08-30 16:20 | W.ED.PSYCHS ---
HPI - Psych General: Chief Complaint: Psychiatric Symptoms Stated Complaint: 96 Time Seen by Provider: 08/30/25 16:20 History of Present Illness: 35-year-old female with a history of obesity and deafness who presents to the emergency room with police on a 96-hour hold. Apparently she was in crisis center. She has had thoughts of suicide and depression. They report a suicide attempt on the eighth. There is also an affidavit but reports her killed himself by walking in front of a car recently. There is also report that she may have tried to overdose her autistic son but I do not see this in any of the affidavits. Currently she denies any suicidal ideations Related Data Home Medications ?Medication ?Instructions ?Recorded ?Confirmed medroxyprogesterone 150 mg/mL mg IM 10/08/24 12/17/24 intramuscular suspension (Depo-Provera) Previous Rx's ?Medication ?Instructions ?Recorded azithromycin 500 mg tablet 500 mg PO DAILY 5 days #5 tabs 10/08/24 cetirizine 10 mg capsule (Zyrtec) 10 mg PO DAILY allergy symptoms 14 10/08/24 days #14 caps fluticasone propionate 50 2 spray intranasal BID 14 days #16 10/08/24 mcg/actuation nasal mL spray,suspension (Flonase Allergy Relief) cetirizine 10 mg tablet (All Day 10 mg PO DAILY PRN allergy 12/17/24 Allergy (cetirizine)) symptoms #30 tabs doxycycline hyclate 100 mg tablet 100 mg PO BID 7 days #14 tabs 12/17/24 fluticasone propionate 50 1 spray intranasal DAILY PRN nasal 12/17/24 mcg/actuation nasal congestion #16 grams spray,suspension (Flonase Allergy Relief) Allergies Allergy/AdvReac Type Severity Reaction Status Date / Time amoxicillin Allergy ALGY-Swell Verified 10/08/24 11:36 Lip/Tongue/Throat bee venom protein (honey bee) Allergy ALGY-Rash Verified 10/08/24 11:36 venom-wasp Allergy ALGY-Rash Verified 10/08/24 11:36 Review of Systems Narrative: Constitutional symptoms: Negative except as documented in HPI. Skin symptoms: Negative except as documented in HPI. Eye symptoms: Negative except as documented in HPI. ENMT symptoms: Negative except as documented in HPI. Respiratory symptoms: Negative except as documented in HPI. Cardiovascular symptoms: Negative except as documented in HPI. Gastrointestinal symptoms: Negative except as documented in HPI. Genitourinary symptoms: Negative except as documented in HPI. Musculoskeletal symptoms: Negative except as documented in HPI. Neurologic symptoms: Negative except as documented in HPI. Psychiatric symptoms: Negative except as documented in HPI. Endocrine symptoms: Negative except as documented in HPI. [facility] ED PFSH: Medical History (Updated 08/30/25 @ 17:08 by Michelle Starks MD) Generalized anxiety disorder Nicotine dependence, cigarettes, uncomplicated Chronic post-traumatic stress disorder (PTSD) Major depressive disorder, recurrent episode, moderate with anxious distress Surgical History History of laparoscopic cholecystectomy Social History Smoking and tobacco/nicotine status: current every day tobacco/nicotine user Substance/Drug Use: current Physical Exam Narrative: EXAM NARRATIVE: General: Alert, no acute distress. Skin: Warm, dry. Head: Normocephalic, atraumatic. Neck: Supple, trachea midline. Eye: Extraocular movements are intact. Ears, nose, mouth and throat: mucosa moist. Cardiovascular: Regular, Normal peripheral perfusion. Respiratory: Lungs are clear to auscultation, respirations are non-labored, breath sounds are equal, Symmetrical chest wall expansion. Gastrointestinal: Soft, Nontender, Non distended Musculoskeletal: Normal ROM, no deformity. Neurological: Alert and oriented, No focal neurological deficit observed. Psychiatric: Cooperative, currently denying any suicidal or homicidal ideation Course Vital Signs: Vital signs: Vital Signs Temperature 97.7 F 08/30/25 17:32 Pulse Rate 77 08/30/25 17:32 Respiratory Rate 15 08/30/25 17:32 Blood Pressure 135/78 08/30/25 17:32 Pulse Oximetry 99 08/30/25 17:32 Oxygen Delivery Me thod Room Air 08/30/25 16:21 MDM - Psych Medical Decision Making Medical decision making: Patient's reason for coming to the emergency room Social determinants: Disabled. Patient is deaf I reviewed the patient's medical record. Last visit was to [facility] back in November for sinusitis. She does not have any listed psychiatric admissions at this facility. I reviewed the patient's current home meds Patient currently does not have any long-term or chronic medications listed Alternate historians: History from police officers and multiple affidavits. Differential diagnosis: Patient with reported depression and suicidal ideation. concerns for infection, alcohol intoxication, cardiac issues or other medical problems prior to psychiatric admission. Workup: labwork, ekg ordered to evaluate the pathologies and to clear the patient medically prior to psychiatric admission EKG: Normal sinus rhythm, No ST-T changes, no ectopy, normal FL & QRS intervals, This was reviewed and interpreted by myself the ER physician Lab Review: Laboratory results were reviewed and interpreted by myself the emergency room physician. - Medically cleared. - EKG shows no ischemic changes. - Blood alcohol level is negative, -Tylenol and salicylate levels are negative. - Drug screen is negative - No signs of infection, urinalysis clear and white count is not elevated - No anemia. - BUN and creatinine are within normal limits. Assessment of risk: - Level of risk moderate to high risk. Concerns for suicidal thoughts and a possible overdose - Was hospitalization considered? Patient is being admitted Reexamination: Patient remained stable. No increased work of breathing. No altered mental status. No focal motor deficits. Consultation: I spoke with Dr. Frost who is on-call for psychiatry who agrees to admission. Assessment and plan: Suicidal ideation Depression Possible overdose -Admission to neuropsychiatric unit for continued evaluation and treatment. - All lab work was reviewed and interpreted personally by myself, the ER physician - Evaluation and treatment of this problem were appropriate in the emergency setting Lab Data 08/30/25 16:42 08/30/25 16:42 Laboratory Results WBC 8.61 10^3/uL (3.29-11.43) 08/30/25 16:42 RBC 5.04 10^6/uL (3.85-5.65) 08/30/25 16:42 Hgb 14.50 g/dL (11.27-16.99) 08/30/25 16:42 Hct 43.8 % (36-47) 08/30/25 16:42 MCV 86.9 fl (85-98) 08/30/25 16:42 MCH 28.8 pg (27-33) 08/30/25 16:42 MCHC 33.1 g/dL (30-55) 08/30/25 16:42 RDW 13.4 % (12.1-15.1) 08/30/25 16:42 Plt Count 251 10^3/cmm (157-399) 08/30/25 16:42 MPV 9.8 fL (7.4-10.4) 08/30/25 16:42 Neut % (Auto) 75.4 % 08/30/25 16:42 Lymph % (Auto) 19.2 % 08/30/25 16:42 Storey % (Auto) 4.6 % 08/30/25 16:42 Eos % (Auto) 0.3 % 08/30/25 16:42 Baso % (Auto) 0.3 % 08/30/25 16:42 Neut # (Auto) 6.48 10^3/uL (1.8-7.7) 08/30/25 16:42 Lymph # (Auto) 1.7 10^3/uL (0.8-4.8) 08/30/25 16:42 Storey # (Auto) 0.4 10^3/uL (0.2-0.9) 08/30/25 16:42 Eos # (Auto) 0.0 10^3/uL (0.0-0.8) 08/30/25 16:42 Baso # (Auto) 0.0 10^3/uL (0.0-0.1) 08/30/25 16:42 Nucleated RBC % (auto) 0 % 08/30/25 16:42 Nucleated RBCs # 0.0 /100WBC 08/30/25 16:42 Sodium 140 mmol/L (136-145) 08/30/25 16:42 Potassium 3.6 mmol/L (3.5-5.1) 08/30/25 16:42 Chloride 106 mmol/L (98-107) 08/30/25 16:42 Carbon Dioxide 24 mmol/L (22-29) 08/30/25 16:42 Anion Gap 13.6 (5-19) 08/30/25 16:42 BUN 12 mg/dL (6-20) 08/30/25 16:42 Creatinine 0.6 mg/dL (0.5-0.9) 08/30/25 16:42 GFR Calculation 112.5 mL/min (90-130) 08/30/25 16:42 Glucose 126 mg/dL (65-115) H 08/30/25 16:42 Calculated Osmolality 291 mOsm/kg (285-295) 08/30/25 16:42 Calcium 9.4 mg/dL (8.5-10.5) 08/30/25 16:42 Total Bilirubin 0.4 mg/dL (0.15-1.2) 08/30/25 16:42 AST 16 U/L (0-32) 08/30/25 16:42 ALT 16 U/L (0-33) 08/30/25 16:42 Alkaline Phosphatase 105 U/L (35-105) 08/30/25 16:42 Total Protein 7.6 g/dL (6.6-8.7) 08/30/25 16:42 Albumin 4.3 g/dL (3.5-5.2) 08/30/25 16:42 Globulin 3.3 g/dL (1.3-4.6) 08/30/25 16:42 TSH 0.94 uIU/mL (0.27-4.20) 08/30/25 16:42 HCG, Qual Negative (Negative) 08/30/25 16:31 Urine Color Yellow (Yellow) 08/30/25 16: Urine Appearance Cloudy (CLEAR) A 08/30/25 16: Urine pH 5.5 (5-7) 08/30/25 16: Ur Specific [place] 1.023 (1.005-1.030) 08/30/25 16: Urine Protein Negative (Negative) 08/30/25 16:31 Urine Glucose (UA) Negative (Normal) 08/30/25 16: Urine Ketones Negative (Negative) 08/30/25 16: Urine Blood Negative (Negative) 08/30/25 16:31 Urine Nitrate Negative (Negative) 08/30/25 16:31 Urine Bilirubin Negative (Negative) 08/30/25 16: Urine Urobilinogen 1.0 mg/dL (Negative) 08/30/25 16: Ur Leukocyte Esterase Trace (Negative) A 08/30/25 16:31 Urine RBC 0-2 /hpf (0-2) 08/30/25 16:31 Urine WBC 6-10 /hpf (0-5) 08/30/25 16:31 Ur Squamous Epith Cells 11-20 /hpf (0-5) H 08/30/25 16:31 Amorphous Sediment Not Reportable 08/30/25 16:31 Urine Bacteria Trace /hpf (NONE) 08/30/25 16:31 Hyaline Casts 0.40 /lpf 08/30/25 16:31 Salicylates < 0.3 mg/dL (3-10) L 08/30/25 16:42 Urine Opiates Screen Negative ng/mL (Negative) 08/30/25 16:31 Acetaminophen < 5.0 ug/mL (10-30) L 08/30/25 16:42 Ur Barbiturates Screen Negative ng/mL (Negative) 08/30/25 16:31 Ur Phencyclidine Scrn Negative ng/mL (Negative) 08/30/25 16:31 Ur Amphetamines Screen Negative ng/mL (Negative) 08/30/25 16:31 U Benzodiazepines Scrn Negative ng/mL (Negative) 08/30/25 16:31 Urine Cocaine Screen Negative ng/mL (Negative) 08/30/25 16:31 U Marijuana (THC) Screen Positive ng/mL (Negative) H 08/30/25 16:31 Ethyl Alcohol < 10 mg/dL (0-10) 08/30/25 16:42 No radiology studies performed this visit Discharge Plan Discharge Patient Disposition: Admitted As Inpatient Admit Provider: Imtiaz Frost Clinical Impression: Depression, Suicidal ideation Condition: Stable Coding Level of Care Code ED Sustainable Agriculture Specialist for Aamir Hudson
[2025-08-30 16:21] VITALS: BP 141/83; PULSE 91; RESP 16; TEMP 36.4; O2SAT 98
--- OUTSIDE RECORDS SUMMARY | 2025-08-30 16:23 | XMS_ITS | Clinical Summary ---
Author Organization [facility] Address [address] [facility] [place] [address] Care Team Providers Care Scout Name Role Phone Jose E Rob DO Primary Care Provider [phone] Allergies No known active allergies Medications ranitidine (ZANTAC) 150 mg tablet Take 150 mg by mouth 2 times daily. Active oxybutynin chloride (DITROPAN) 5 mg tablet Take 5 mg by mouth 2 times daily. Active hyoscyamine (LEVSIN) 0.125 mg Tablet, Sublingual Place 0.125 mg under tongue. Qid, prn Active MULTIVIT WITH CALCIUM,IRON,MIN (WOMEN'S MULTIPLE VITAMINS ORAL) Take by mouth daily. Active Active Problems Problem Noted Date Diagnosed Date Abdominal pain, epigastric 11/10/2013 Immunizations Immunization Administration Dates Next Due (GARDASIL)(9-45 YRS) HUMAN P APILLOMAVIRUS VACCINE, TYPES 6, 11, 16, 18, QUADRIVALENT (4VHPV), 3 DOSE, IM 04/29/2009 (M-M-R II/PRIORIX)(12 MO UP) MEASLES, MUMPS AND RUBELLA VIRUS VACCINE, 0.5 ML IM/SUBCUT 11/16/1992,10/23/1989 (TDVAX)(7 YRS UP) TETANUS AN D DIPHTHERIA TOXOIDS, ADSORBED (2 LF OF TETANUS TOXOID AND 2 LF OF DIPHTHERIA TOXOID), 0.5ML (PF), IM 05/06/2003 Dt Dtp Dtap Vaccine 11/16/1992,10/23/1989 HIB, Unspecified Formulation 01/15/1990 Hepatitis B Vaccine 10/31/2001,05/30/2001,2000 IPV/OPV 11/16/1992,10/23/1989 Family History Medical History Relation Name Comments Migraines Mother Relation Name Status Comments Mother Social History Tobacco Use Types Packs/Day Years Used Date Smoking Tobacco: Every Day Cigarettes Alcohol Use Standard Drinks/Week Comments Yes 0 (1 standard drink = 0.6 oz pur e alcohol) Comments No Sex and Gender Information Value Date Recorded Sex Assigned at Not on file Legal 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 Gender Identity Not on file Sexual Orientation Not on file Last Filed Vital Signs Vital Sign Reading Time Taken Comments Blood Pressure 151/82 11/10/2013 3:38 PM HEAVY RAIL TRAIN OPERATOR Pulse 96 11/10/2013 3:38 PM HEAVY RAIL TRAIN OPERATOR Temperature - - Respiratory Rate - - Oxygen Saturation 99% 11/10/2013 3:38 PM HEAVY RAIL TRAIN OPERATOR Inhaled Oxygen Concentration - - Weight 160.6 kg (354 lb) 11/10/2013 3:38 PM 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 RAIL TRAIN OPERATOR Height 157.5 cm (5' 2 ) 11/10/2013 3:38 PM HEAVY RAIL TRAIN OPERATOR Body Mass Index 64.75 11/10/2013 3:38 PM 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
--- NOTE | 2025-08-30 16:29 | ECG_ITS ---
[facility] Test Date: 2025-08-30 Pat Name: Jhony Quiroga Department: Room: Gender: Female Business Liaison Officer: : 1990 Requested By: Michelle Aguayo Order Number: [id number] Mireles MD: Brittny Santos M.D. Measurements Intervals [place] Rate: 83 P: 32 MI: 146 QRS: 64 QRSD: 85 T: 40 QT: 352 QTc: 415 Interpretive Statements SINUS RHYTHM No previous ECG available for comparison Electronically Signed On 08-30-2025 18:10:37 MACHINE IRONER by Brittny Santos M.D. [email or web address]
[2025-08-30 16:48] LABS: Glucose Urine UA Negative (Normal); Nitrate Urine Negative (Negative); Specific Gravity, Urine 1.023 (1.005-1.030)
[2025-08-30 16:49] LABS: Hematocrit 43.8 % (36-47); Hemoglobin 14.50 g/dL (11.27-16.99); Mean Corpuscular HGB Conc 33.1 g/dL (30-55); Mean Corpuscular Hemoglobin 28.8 pg (27-33); Mean Corpuscular Volume 86.9 fl (85-98); Nucleated Red Blood Cells % 0 %; Platelet Count 251 10^3/cmm (157-399); Red Blood Count 5.04 10^6/uL (3.85-5.65); White Blood Count 8.61 10^3/uL (3.29-11.43)
[2025-08-30 16:50] LABS: Add Urine Microscopic? YES
[2025-08-30 16:55] LABS: PCP Screen Urine Negative (Negative)
[2025-08-30 17:07] LABS: HCG Qualitative Urine. Negative (Negative)
[2025-08-30 17:17] LABS: Acetaminophen < 5.0 ug/mL (10-30); Alanine Aminotransferase 16 U/L (0-33); Albumin Level 4.3 g/dL (3.5-5.2); Alcohol Level < 10 mg/dL (0-10); Alkaline Phosphatase 105 U/L (35-105); Anion Gap 13.6 (5-19); Aspartate Amino Transferase 16 U/L (0-32); Blood Urea Nitrogen 12 mg/dL (6-20); Calcium 9.4 mg/dL (8.5-10.5); Carbon Dioxide 24 mmol/L (22-29); Chloride 106 mmol/L (98-107); Creatinine Clr Calc Pharmacy 174.0283; Globulin 3.3 g/dL (1.3-4.6); Glucose 126 mg/dL (65-115); Osmolality Calculated 291 mOsm/kg (285-295); Potassium 3.6 mmol/L (3.5-5.1); Salicylate < 0.3 mg/dL (3-10); Sodium 140 mmol/L (136-145); Thyroid Stimulating Hormone 0.94 uIU/mL (0.27-4.20); Total Protein 7.6 g/dL (6.6-8.7)
[2025-08-30 17:32] VITALS: BP 135/78; PULSE 77; RESP 15; TEMP 36.5; O2SAT 99
--- NOTE | 2025-08-30 18:05 | PC.NURSE ---
96 hr rights reviewed with pt @[id number] with assistance of [facility] forest fire management officer Malcom Chávez All education reviewed with pt at this time, and pt verbalized understanding to the hold parameters. Pt copy was given to pt @bedside. Pt declined a drink or snack. No further needs at this time.
[2025-08-30 20:32] VITALS: BP 124/86; PULSE 87; RESP 18; TEMP 36.9; O2SAT 96
--- NOTE | 2025-08-31 00:08 | PC.NURSE ---
BEHAVIOR PATIENT HAS BEEN CRYING ON AND OFF THIS WHOLE SHIFT THUS FAR. SHE STATES SHE IS BEING HELD AGAINST HER WILL, THAT THE THINGS HER SISTER SAID ARE NOT TRUE. THAT SHE AND HER SON JUST RECENTLY LOST HER AND THAT HER SON NEEDS HER. PATIENT HAS BEEN OFFERED ANXIETY AND SLEEP MEDS SEVERAL TIMES BUT PATIENT REFUSES THEM. PATIENT HAS BEEN REASSURED BY STAFF AND PATIENTS MOTHER THAT HER SON IS OKAY, AND THAT HE IS BEING WELL CARED FOR. AND THAT FOR NOW, SHE NEEDS TO GET SOME REST. THAT DR JOHNSON WILL BE HERE TO VISIT WITH HER SOON HE CAN, AND THAT JULIO CESAR, AT THIS TIME, ALL THAT SHE CAN DO IS TRY TO GET SOME REST.
[2025-08-31 05:37] VITALS: BP 129/78; PULSE 74; RESP 18; TEMP 36.9; O2SAT 97
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
[2025-08-31 14:00] VITALS: BP 118/83; PULSE 77; RESP 17; TEMP 37.1; O2SAT 96
[2025-08-31 16:39] VITALS: BP 118/83; PULSE 77; RESP 17; TEMP 37.1; O2SAT 96
== END 2025-08-31 16:51 | disposition home or self-care (01) | DRG 756 ==
LOC: ER 17:08 → NP 17:17
PROVIDERS: Admitting Provider Psychiatry & Neurology Psychiatry; Emergency Provider Emergency Medicine; PCP Family Medicine; Visit Provider Psychiatry & Neurology Psychiatry
DX: F43.12 Post-traumatic stress disorder, chronic (principal); F41.1 Generalized anxiety disorder; H91.90 Unspecified hearing loss, unspecified ear; Z63.4 Disappearance and death of family member; E66.01 Morbid (severe) obesity due to excess calories; Z68.43 Body mass index [BMI] 50.0-59.9, adult; Z91.51 Personal history of suicidal behavior; Z91.414 Personal history of adult intimate partner abuse; Z62.812 Personal history of neglect in childhood; Z63.32 Other absence of family member; F17.210 Nicotine dependence, cigarettes, uncomplicated
CPT/HCPCS: 36415; 80053; 80306; 80307; 81001; 81025; 84443; 85025; 93005; 97165; 99285